=== PATIENT | female | born 1965 ===

== ENCOUNTER 2017-04-05 06:14 | Day surgery (SDC) | payer OTHER ==
[2017-04-05 06:41] VITALS: BMI 32.5
[2017-04-05] MEDS ORDERED: Simethicone 40 mg/0.6 ml Liquid (30 ml) ONE (07:17)
[2017-04-05] MEDS ORDERED: Propofol 10 mg/ml Inj (20 ML) ONE ×3 (08:12→08:34)
[2017-04-05 09:25] VITALS: TEMP 97.3
[2017-04-05 09:29] VITALS: O2SAT 98
[2017-04-05 10:07] VITALS: BP 150/70; PULSE 64; RESP 18
== END 2017-04-05 11:00 | disposition home or self-care (01) ==
LOC: C.ENDO 06:14
PROVIDERS: ATTEND Internal Medicine
DX: K52.9 Noninfective gastroenteritis and colitis, unspecified (principal); K63.5 Polyp of colon; D12.3 Benign neoplasm of transverse colon; K29.50 Unspecified chronic gastritis without bleeding; K29.80 Duodenitis without bleeding; K64.8 Other hemorrhoids; K62.5 Hemorrhage of anus and rectum; K21.9 Gastro-esophageal reflux disease without esophagitis; Z86.010 Personal history of colon polyps; Z80.0 Family history of malignant neoplasm of digestive organs; Z86.19 Personal history of other infectious and parasitic diseases
CPT/HCPCS: 43239; 45380; 45381; 45385; 82948; 88305; J2704